=== PATIENT | male | born 1970 | race Caucasian/White ===

== ENCOUNTER 2017-04-16 11:33 | Inpatient (IN) | payer MEDICAID ==
[~2017-04-16] VITALS: Ht 167.6 cm; Wt 62.1 kg
[2017-04-16] MEDS ORDERED: SODIUM CHLORIDE 0.9% 1,000 ML IV ONE (12:14)
[2017-04-16 12:49] LABS: Eosinophils # (auto) 0.2 uL; Monocytes # (auto) 0.8 uL; Neutrophils # (auto) 7.2 uL; Red Cell Distribution Width 14.6 % (11.8-14.3)
[2017-04-16 12:50] LABS: Basophils # (auto) 0.1 uL; Hematocrit 40.7 % (41.0-53.0); Hemoglobin 13.5 g/dL (13.5-17.5); Lymphocytes # (auto) 1.5 uL; Lymphocytes % (auto) 14.8 % (10.0-50.0); Mean Corpuscular Hgb Conc. 33.2 g/dL (32.0-36.0); Mean Corpuscular Volume 87.5 fL (80.0-100.0); Monocytes % (auto) 8.6 % (0.0-12.0); Neutrophils % (auto) 73.6 % (37.0-80.0); Platelet Count (auto) 467 10^3/uL (140-450); Red Blood Cells 4.65 10^6/uL (4.5-5.90); White Blood Cell 9.8 10^3/uL (4.4-10.8)
[2017-04-16] MEDS ORDERED: HYDROcodone-ACET 5/325MG TAB PO ONE (13:15)
[2017-04-16 13:30] LABS: Albumin 2.9 g/dL (3.4-5.0); BUN/Creatinine Ratio 25.8; Bilirubin, Total 0.1 mg/dL (0.2-1.0); Calcium 7.7 mg/dL (8.5-10.1); Magnesium 2.4 mg/dL (1.6-2.6); Potassium 3.9 mmol/L (3.5-5.1); Total Protein 6.7 g/dL (6.4-8.2)
[2017-04-16] MEDS ORDERED: PROMETHAZINE HCL 25 MG/ML 1ML IV PRN (16:45)
[2017-04-16] MEDS ORDERED: MORPHINE SULF INJ 2 MG/ML SYRINGE 1ML IV PRN (16:45)
[2017-04-16] MEDS ORDERED: LACTULOSE 20Gm/30ML SOLN PO PRN (16:45)
[2017-04-16] MEDS ORDERED: ACETAMINOPHEN 500 MG TAB PO PRN (16:45)
[2017-04-16] MEDS ORDERED: NITROGLYCERIN 0.4 MG SL TAB SL PRN (16:45)
[2017-04-16] MEDS ORDERED: LORazepam 0.5 MG TAB PO PRN (16:45)
[2017-04-16] MEDS ORDERED: MORPHINE SULFATE 10 MG/ML INJ 1ML SDV IV PRN (16:45)
[2017-04-16] MEDS: SODIUM CHLORIDE 0.9% 1,000 ML IV SCH ×3 (17:27→22:10)
[2017-04-16 18:29] VITALS: BP 175/83
[2017-04-16] MEDS ORDERED: PHE100C PO (19:21)
[2017-04-16] MEDS ORDERED: SIMV-8 PO (19:21)
[2017-04-16] MEDS ORDERED: CEPH500T PO (19:21)
[2017-04-16] MEDS ORDERED: HYDR-4683 PO (19:21)
[2017-04-16] MEDS ORDERED: AML5T PO (19:21)
[2017-04-16] MEDS: METOPROLOL TARTRATE 25 MG TAB PO SCH ×2 (19:41→22:12)
[2017-04-16] MEDS: ENALAPRIL MALEATE 2.5 MG TAB PO SCH ×2 (19:41→22:11)
[2017-04-16] MEDS: HYDROcodone-ACET 5/325MG TAB PO PRN (19:42)
[2017-04-16] MEDS ORDERED: NYSTATIN (MOUTH-THROAT) 500,000 UNITS/5 ML SUSP MT ONE (20:00)
[2017-04-16 21:49] VITALS: BP 145/83
[2017-04-16] MEDS: NYSTATIN (MOUTH-THROAT) 500,000 UNITS/5 ML SUSP MT SCH (22:00)
[2017-04-16] MEDS: ATORVASTATIN 20 MG TAB PO SCH (22:11)
[2017-04-16] MEDS: TEMAZEPAM 15 MG CAP PO PRN (22:13)
[2017-04-17 05:02] VITALS: BP 97/69
[2017-04-17] MEDS: NYSTATIN (MOUTH-THROAT) 500,000 UNITS/5 ML SUSP MT SCH ×4 (05:31→21:25)
[2017-04-17 07:14] LABS: Cholesterol 211 mg/dL (< 200); HDL Cholesterol 31 mg/dL (40-59); LDL Cholesterol 143 mg/dL (< 100); Triglycerides 268 mg/dL (< 150)
[2017-04-17 08:56] VITALS: BP_SYST 131
[2017-04-17] MEDS: METOPROLOL TARTRATE 25 MG TAB PO SCH ×2 (10:00→21:26)
[2017-04-17] MEDS: ENALAPRIL MALEATE 2.5 MG TAB PO SCH ×2 (10:00→21:26)
[2017-04-17] MEDS: NITROGLYCERIN 0.2MG/HR TOPICAL PATCH TD SCH (10:00)
[2017-04-17] MEDS: PANTOPRAZOLE 40 MG TAB PO SCH (10:57)
[2017-04-17] MEDS: HYDROcodone-ACET 5/325MG TAB PO PRN ×2 (10:58→17:58)
[2017-04-17 11:29] VITALS: BP 105/64
[2017-04-17] MEDS ORDERED: PHENYTOIN SODIUM 100 MG CAP PO ONE (13:00)
[2017-04-17 13:48] LABS: Alcohol, Urine < 3.0 mg/dL (0-5); Amphetamine Screen, Urine NEGATIVE (NEGATIVE); Barbiturate Scree,Urine NEGATIVE (NEGATIVE); Benzodiazephine Screen, Urine NEGATIVE (NEGATIVE); Cannabinoid Screen, Urine NEGATIVE (NEGATIVE); Cocaine Screen, Urine NEGATIVE (NEGATIVE); Opiate Scree,Urine NEGATIVE (NEGATIVE); Phencyclidine Screen, Urine NEGATIVE (NEGATIVE)
[2017-04-17] MEDS ORDERED: IOHEXOL 350 MG/ML 100ML IJ ONE (14:13)
[2017-04-17] MEDS ORDERED: MULTIPLE VITAMIN TAB PO ONE (16:30)
[2017-04-17 16:46] VITALS: BP 104/58
[2017-04-17] MEDS ORDERED: MORPHINE SULFATE 4 MG/ML SYR/VIAL IV PRN ×2 (20:00→20:15)
[2017-04-17] MEDS: ATORVASTATIN 20 MG TAB PO SCH (21:26)
[2017-04-17] MEDS: PHENYTOIN SODIUM 100 MG CAP PO SCH (21:26)
[2017-04-17] MEDS: ASCORBIC ACID 500 MG TAB PO SCH (21:27)
[2017-04-17] MEDS: TEMAZEPAM 15 MG CAP PO PRN (21:27)
[2017-04-17 23:10] VITALS: BP 116/56
[2017-04-18 05:21] VITALS: BP 118/62
[2017-04-18] MEDS: NYSTATIN (MOUTH-THROAT) 500,000 UNITS/5 ML SUSP MT SCH ×2 (05:27→13:12)
[2017-04-18 08:00] VITALS: BP 115/86
[2017-04-18] MEDS: SODIUM CHLORIDE 0.9% 1,000 ML IV SCH (08:38)
[2017-04-18 09:00] VITALS: BP 128/87
[2017-04-18 10:00] VITALS: BP 120/65
[2017-04-18] MEDS ORDERED: MULTIPLE VITAMIN TAB PO SCH (10:00)
[2017-04-18] MEDS: NITROGLYCERIN 0.2MG/HR TOPICAL PATCH TD SCH (10:00)
[2017-04-18] MEDS ORDERED: VITAMINS A & D (TOPICAL) OINT 5GM TOP ONE (10:52)
[2017-04-18] MEDS: HYDROcodone-ACET 5/325MG TAB PO PRN (11:00)
[2017-04-18] MEDS: ASCORBIC ACID 500 MG TAB PO SCH (11:00)
[2017-04-18] MEDS: ENALAPRIL MALEATE 2.5 MG TAB PO SCH (11:01)
[2017-04-18] MEDS: METOPROLOL TARTRATE 25 MG TAB PO SCH (11:03)
[2017-04-18] MEDS: PHENYTOIN SODIUM 100 MG CAP PO SCH (11:04)
[2017-04-18] MEDS: PANTOPRAZOLE 40 MG TAB PO SCH (11:04)
[2017-04-18 12:28] VITALS: BP 128/87
== END 2017-04-18 13:00 | disposition home or self-care (01) | DRG 201 ==
LOC: EDBD 11:33 → ER 11:33 → TELE 11:34 → TELE-WESTW 18:28
PROVIDERS: ADMIT Internal Medicine; ATTEND Internal Medicine
DX: I49.3 Ventricular premature depolarization (principal); E44.0 Moderate protein-calorie malnutrition; B37.0 Candidal stomatitis; R07.9 Chest pain, unspecified; R00.2 Palpitations; Z82.49 Family history of ischemic heart disease and other diseases of the circulatory system; Z68.22 Body mass index [BMI] 22.0-22.9, adult; Z87.820 Personal history of traumatic brain injury
CPT/HCPCS: 36415; 71046; 71275; 80053; 80061; 80185; 80307; 82550; 83735; 84443; 84484; 85025; 85379; 85652; 86141; 87081; 93005; 93017; 93306; 94761; 96360

== ENCOUNTER 2018-01-22 21:05 | Emergency (ER) | payer MEDICAID ==
[~2018-01-22] VITALS: Ht 167.6 cm; Wt 68.0 kg
[~2018-01-22 21:05] MED LIST: AML5T PO; CEPH500T PO; HYDR-4683 PO; PHE100C PO; SIMV-8 PO
[2018-01-22 21:34] LABS: Basophils # (auto) 0.1 uL; Basophils % (auto) 0.9 % (0.0-2.0); Eosinophils # (auto) 0.2 uL; Eosinophils % (auto) 1.4 % (0.0-7.0); Hematocrit 44.1 % (41.0-53.0); Hemoglobin 14.8 g/dL (13.5-17.5); Lymphocytes # (auto) 1.3 uL; Lymphocytes % (auto) 9.6 % (10.0-50.0); Mean Corpuscular Hemoglobin 28.9 pg (28.0-32.0); Mean Corpuscular Hgb Conc. 33.4 g/dL (32.0-36.0); Mean Corpuscular Volume 86.5 fL (80.0-100.0); Monocytes # (auto) 0.8 uL; Monocytes % (auto) 5.7 % (0.0-12.0); Neutrophils % (auto) 82.4 % (37.0-80.0); Platelet Count (auto) 194 10^3/uL (140-450); Red Cell Distribution Width 14.4 % (11.8-14.3); White Blood Cell 13.3 10^3/uL (4.4-10.8)
[2018-01-22 21:51] LABS: Albumin 3.7 g/dL (3.4-5.0); BUN/Creatinine Ratio 13.2; Calcium 8.4 mg/dL (8.5-10.1); Potassium 3.4 mmol/L (3.5-5.1)
[2018-01-22 21:54] LABS: Bilirubin, Total 0.3 mg/dL (0.2-1.0); Total Protein 6.9 g/dL (6.4-8.2)
[2018-01-22 22:04] LABS: Urine Bacteria NONE SEEN /hpf (None Seen); Urine Blood TRACE /uL (Negative); Urine Specific Gravity 1.009 (1.001-1.035); Urine Sperm PRESENT /hpf (None Seen); Urine WBC <1 /hpf (0 - 3)
[2018-01-22 22:25] LABS: Alcohol, Urine < 3.0 mg/dL (0-5); Amphetamine Screen, Urine NEGATIVE (NEGATIVE); Barbiturate Scree,Urine NEGATIVE (NEGATIVE); Benzodiazephine Screen, Urine NEGATIVE (NEGATIVE); Cannabinoid Screen, Urine POSITIVE (NEGATIVE); Cocaine Screen, Urine NEGATIVE (NEGATIVE); Opiate Scree,Urine NEGATIVE (NEGATIVE); Phencyclidine Screen, Urine NEGATIVE (NEGATIVE)
[2018-01-22] MEDS ORDERED: ACETAMINOPHEN 500 MG TAB PO ONE (23:45)
[2018-01-23 00:01] LABS: Blood Alcohol < 3.0 mg/dL (0-5)
[2018-01-23 02:02] VITALS: BP 105/55
== END 2018-01-23 02:29 | disposition home or self-care (01) ==
LOC: ER 21:05
DX: G40.409 Other generalized epilepsy and epileptic syndromes, not intractable, without status epilepticus (principal); F19.10 Other psychoactive substance abuse, uncomplicated; E78.5 Hyperlipidemia, unspecified; I10 Essential (primary) hypertension; Z87.820 Personal history of traumatic brain injury
CPT/HCPCS: 36415; 70450; 71045; 80053; 80178; 80307; 80320; 81001; 84484; 85025; 93005; 94761